=== PATIENT | female | born 1970 | race Caucasian/White ===

== ENCOUNTER 2024-03-22 17:16 | Emergency (ER) | payer BC, SELFPAY ==
[2024-03-22] VITALS (11 sets, daily range): BP systolic 148–162; BP diastolic 98–108; PULSE 77–94; RESP 18–20; TEMP 36.2; O2SAT 93–99; BMI 37.3
--- NOTE | 2024-03-22 17:39 | ED_ITS ---
"HPI - General Adult General Chief complaint: Chest Pain Stated complaint: Chest pain, SOB, dizziness Time Seen by Provider: 03/22/24 17:18 History of Present Illness HPI narrative: comes to ed with concerns of feeling of pounding in her chest with hr of 116 at 1600. had sharp needle type pain in the left side of her chest. felt extremely warm and dizzy. felt near syncopal. was nauseated. is very anxious upon arrival. co dry mouth. has anxiety with feeling jittery and scared. was taken off Tamoxifen 2 weeks ago and blood work. has been seeing her dr in [facility] for some of these same symptoms. had elevated liver enzymes and is getting an u/ next . was in [place] visiting her daughter, there since 1200. 53-year-old woman presenting to the emergency department with concern of a pounding chest pain. This occurred about an hour and a half ago now. Needling pain at the left chest. She felt like she might be about to pass out and was little nauseated. Heart rate I believe was measured at 116 or so. Became increasingly anxious. Has a diagnosis of breast cancer with lymph node resection and has been treated with tamoxifen. She has been struggling with hot flashes that have also been associated with runs of tachycardia. Did not feel like this though. Intolerable to the point that has paused tamoxifen not having taken over the last couple weeks. Admittedly now quite a bundle of nerves Related Data Home Medications ?Medication ?Instructions ?Recorded ?Confirmed No Known Home Medications 03/22/24 03/22/24 Allergies Allergy/AdvReac Type Severity Reaction Status Date / Time gluten Allergy Verified 03/22/24 17:25 Review of Systems Status of ROS: Reports: 6 or more systems reviewed and unremarkable except as noted in History and below [facility] Social History Smoking Status: Never smoker Do you use any of these nicotine containing products: None Second hand tobacco smoke exposure: No How often do you have a drink containing alcohol: monthly or less How many standard drinks containing alcohol do you have on a typical day: 1 or 2 How often do you have six or more drinks on one occasion: Never AUDIT-C Alcohol total score: 1 Non-prescribed substance use: denies use service: No Exam Narrative: Exam Narrative: Very tense and tremulous. Pleasant. Labored breathing but not notably tachypneic. Cranial nerves 2-12 intact. Lungs are clear. Heart in elevated rate and regular rhythm. Abdomen soft and nontender. Extremities are well perfused without edema. Skin is warm and dry; not notably flushed. Const: Vital Signs, click to edit/add: Vital Signs - 24 hr 03/22/24 17:26 03/22/24 17:26 03/22/24 17:28 Temperature 97.1 F L Pulse Rate 93 91 Pulse Rate [Apical ] 93 Respiratory Rate 20 Blood Pressure 148/108 H Blood Pressure [Le ft Upper Arm] 148/108 H Pulse Oximetry 99 99 99 Oxygen Delivery Me thod Room Air 03/22/24 17:30 03/22/24 17:45 03/22/24 18:00 Temperature Pulse Rate 89 88 84 Pulse Rate [Apical ] Respiratory Rate 18 Blood Pressure Blood Pressure [Le ft Upper Arm] Pulse Oximetry 99 98 97 Oxygen Delivery Me thod 03/22/24 18:15 03/22/24 18:30 03/22/24 18:45 Temperature Pulse Rate 84 90 77 Pulse Rate [Apical ] Respiratory Rate Blood Pressure Blood Pressure [Le ft Upper Arm] Pulse Oximetry 93 97 95 Oxygen Delivery Me thod 03/22/24 19:00 03/22/24 19:01 03/22/24 19:17 Temperature Pulse Rate 87 88 94 Pulse Rate [Apical ] Respiratory Rate Blood Pressure 162/98 H Blood Pressure [Le ft Upper Arm] Pulse Oximetry 98 98 96 Oxygen Delivery Me thod Documenting provider has reviewed patient's vital signs: yes Course Vital Signs Vital signs: Initial Vital Signs Temperature 97.1 F L 03/22/24 17:26 Temperature Source Temporal Artery Scan 03/22/24 17:26 Pulse Rate 93 03/22/24 17:26 Pulse Rhythm Regular 03/22/24 17:26 Respiratory Rate 20 03/22/24 17:26 Blood Pressure 148/108 H 03/22/24 17:26 Blood Pressure Mean 121 H 03/22/24 17:26 Blood Pressure Position Supine 03/22/24 17:26 Pulse Oximetry 99 03/22/24 17:26 Oxygen Delivery Method Room Air 03/22/24 17:26 Vital Signs Temperature 97.1 F L 03/22/24 17:26 Pulse Rate 93 03/22/24 17:26 Respiratory Rate 20 03/22/24 17:26 Blood Pressure 148/108 H 03/22/24 17:26 Pulse Oximetry 99 03/22/24 17:26 Oxygen Delivery Method Room Air 03/22/24 17:26 Temperature 97.1 F L 03/22/24 17:26 Pulse Rate 94 03/22/24 19:17 Respiratory Rate 18 03/22/24 18:00 Blood Pressure 162/98 H 03/22/24 19:00 Pulse Oximetry 96 03/22/24 19:17 Oxygen Delivery Method Room Air 03/22/24 17:26 Medications Administered Medications: Discontinued Medications Generic Name Dose Route Start Last Admin Trade Name Jean PRN Reason Stop Dose Admin Sodium Chloride 500 mls @ 1,000 mls/hr 03/22/24 17:49 03/22/24 19:14 0.9 % Sodium Chloride 500 Ml IV 03/22/24 18:18 Infused .Q30M ONE Infusion Lorazepam 0.5 mg 03/22/24 17:49 03/22/24 18:21 Lorazepam 2 Mg/Ml Inj IVP 03/22/24 17:50 Not Given ONCE ONE Medical Decision Making MDM Narrative Medical decision making narrative: As I go to see Ms. Blas I have an EKG in hand. There is jitteriness in the baseline which I would associate with tremulousness that I see here. She is not tachycardic. In normal sinus otherwise. This does not appear to be an isolated event. Symptoms do not seem to rise to the level of catecholamine surge other than may be anxiety induced. As far as to the onset of these a little unclear. Can recheck labs looking for anemia, chemistry anomalies, check again TSH. Troponin. Might be having runs of atrial fibrillation or SVT although 116 unlikely to be SVT I think. More likely a sinus tachycardia. Monitor for stability in the ER. Given normal saline bolus. Did also order lorazepam which show ultimately she declined. Monitor in the emergency department and overall improved improved. No longer tremulous. Vitals stable. Labs are reassuring. See patient discharge plan for further discussion Do try to get in a little heart pumping exercise daily. Get quality and regular sleep. Stay well hydrated with water. Would discuss with your primary care provider further investigation like cardiac monitoring longer term such as a ZIO patch or treatment with something like propranolol for symptoms when they do occur. Lab Data Lab results reviewed: Yes I reviewed the patient's lab results Labs: Lab Results 03/22/24 03/22/24 03/22/24 Range/Units 17:49 18:05 18:45 Hgb 14.5 (12.0-16.0) gm/dL Sodium 139 (135-149) mmol/L Potassium 5.2 H (3.6-5.1) mmol/L Chloride 108 (96-114) mmol/L Carbon Dioxide 25 (20-32) mmol/L Anion Gap 6 L (7-15) mEq/L BUN 17 (7-30) mg/dL Creatinine 0.7 (0.5-1.5) mg/dL Estimated Creat Clear 93.76 Estimated GFR 103 ml/min Glucose 124 H (60-115) mg/dL Calcium 9.3 (8.4-10.6) mg/dL Magnesium 2.2 (1.5-2.6) mg/dL Troponin I 0.02 (0.01-0.04) ng/mL TSH 2.150 (0.270-4.20) uIU/mL Lab Acknowledgement Test Added POC Troponin I 0.00 L (0.01-0.04) ng/ml ECG Data Attestation: I personally reviewed and interpreted this ECG as follows: (Normal sinus rhythm some baseline variability. Rate of 93) Discharge Plan Discharge Clinical Impression: Tachycardia, Anxiety Patient Disposition: Home w/ Parent or Adult Condition: Improved Additional Instructions: Do try to get in a little heart pumping exercise daily. Get quality and regular sleep. Stay well hydrated with water. Would discuss with your primary care provider further investigation like cardiac monitoring longer term such as a ZIO patch or treatment with something like propranolol for symptoms when they do occur. Prescriptions: No Action No Known Home Medications Follow Up/Referrals: Provider,Not a Local [Primary Care Provider] - Stand Alone Forms: [employer] Info Instructions"
[2024-03-22 18:15] LABS: Hemoglobin* 14.5 gm/dL (12.0-16.0)
[2024-03-22] MEDS: 0.9 % SODIUM CHLORIDE 500 ML 500 ML 1000 ML IV (18:21)
[2024-03-22 18:30] LABS: Chloride* 108 mmol/L (96-114); Potassium* 5.2 mmol/L (3.6-5.1); Sodium* 139 mmol/L (135-149)
[2024-03-22 18:33] LABS: Anion Gap 6 mEq/L (7-15); Blood Urea Nitrogen* 17 mg/dL (7-30); Calcium* 9.3 mg/dL (8.4-10.6); Carbon Dioxide* 25 mmol/L (20-32); Creatinine* 0.7 mg/dL (0.5-1.5); Est. Creatinine Clearance* 93.76; Estimated Glomerular Filt Rate 103 ml/min; Glucose* 124 mg/dL (60-115)
[2024-03-22 18:46] LABS: Troponin I* 0.02 ng/mL (0.01-0.04)
[2024-03-22 19:13] LABS: Magnesium* 2.2 mg/dL (1.5-2.6)
== END 2024-03-22 19:43 | disposition home or self-care (01) ==
PROVIDERS: Emergency Provider Family Medicine
DX: R00.0 Tachycardia, unspecified (principal); F41.9 Anxiety disorder, unspecified
CPT/HCPCS: 36415; 80048; 83735; 84443; 84484; 85018; 93005; 96374; 99284; J7030